=== PATIENT | male | born 1985 | race Caucasian/White ===

== ENCOUNTER 2019-05-20 20:12 | Emergency (ER) | payer OTHER ==
[2019-05-20] MEDS ORDERED: LIDOCAINE 1% INJ 10MG/ML (20 ML MDV) SQ STA (20:36)
[2019-05-20] MEDS ORDERED: CEPHALEXIN 500MG STARTER PACK 4 CAP BTL PO STA (21:28)
[2019-05-20] MEDS ORDERED: SULFAMETH-TMP DS STARTER PACK 2 TAB BTL PO STA (21:28)
--- NOTE | 2019-05-20 21:30 | ED ---
General Adult HPI - General Chief complaint: Skin/Abscess/Foreign Body Stated complaint: Abscess Time Seen by Provider: 05/20/19 20:19 Source: patient, RN notes reviewed, old records reviewed Mode of arrival: ambulatory Limitations: no limitations - History of Present Illness Initial comments: 33-year-old male patient no pertinent past medical history presents to ED for chief complaint of testicular abscess. Patient reports that for 2 days he has had an abscess on the dorsal aspect of his penis. Denies any injections in the area, denies any IV drug use. Patient does report he did attempt an incision and drainage himself in the shower today with a clean knife which he states did not drain any pus. Was seen at urgent care and then sent emergency department. Denies any reason for immunocompromised state. Systemic: Pt denies fatigue, fever/chills, rash. Pt denies weakness, night sweats, weight loss. Neuro: Pt denies headache, visual disturbances, syncope or pre-syncope. HEENT: Pt denies ocular discharge or irritation, otalgia, rhinorrhea, pharyngitis or notable lymphadenopathy. Cardiopulmonary: Pt denies chest pain, SOB, heart palpitations, dyspnea on exertion. Abdominal/GI: Pt denies abdominal pain, n/v/d. : Pt denies dysuria, burning w/ urination, frequency/urgency. Denies new onset urinary or bowel incontinence. MSK: Pt denies myalgia, loss of strength or function in extremities. Neuro: Pt denies new onset weakness, paresthesias. - Related Data Previous Rx's Medication Instructions Recorded Cephalexin [Keflex] 500 mg PO Q6HR 10 Days #40 cap 05/20/19 Sulfamethox-Tmp 800-160Mg [Bactrim 1 tab PO Q12HR #20 tab 05/20/19 DS 800-160 mg] Allergies Allergy/AdvReac Type Severity Reaction Status Date / Time No Known Allergies Allergy Verified 05/20/19 20:15 Review of Systems ROS Statement: Those systems with pertinent positive or pertinent negative responses have been documented in the HPI. ROS Other: All systems not noted in ROS Statement are negative. Past Medical History Past Medical History: No Reported History History of Any Multi-Drug Resistant Organisms: None Reported Past Surgical History: Tonsillectomy Past Psychological History: No Psychological Hx Reported Smoking Status: Smoker, current status unknown Past Alcohol Use History: None Reported Past Drug Use History: None Reported General Exam - General Exam Comments Initial Comments: Constitutional: NAD, AOX3, Pt has pleasant affect. HEENT: NC/AT, trachea midline, neck supple, no lymphadenopathy. Posterior ph arynx non erythematous, without exudates. External ears appear normal, without discharge. Mucous membranes moist. Eyes PERRLA, EOM intact. There is no scleral icterus. No pallor noted. Cardiopulmonary: RRR, no murmurs, rubs or gallops, no JVD noted. Lungs CTAB in anterior and posterior biswas. No peripheral edema. Abdominal exam: Abdomen soft and non-distended. Abdomen non-tender to palpation in all 4 quadrants. Bowel sounds active in LLQ. No hepatosplenomegaly. No ecchymosis Neuro: CN II-XII grossly intact. No nuchal rigidity. No raccon eyes, no abrams sign, no hemotympanum. No cervical spinal tenderness. MSK: No posterior calf tenderness bilaterally, homans sign negative bilaterally. Posterior tibialis and radial pulse +2 bilaterally. Sensation intact in upper and lower extremities. Full active ROM in upper and lower extremities, 5/5 stregnth. : 2 x 1 cm abscess proximal aspect of the dorsum of the penile shaft. Area was cleaned, incision and drainage was performed initially with an 18-gauge needle and then slightly extended with a scalpel. Total incision approximately half centimeter of length. Purulent drainage was obtained. No other areas of infection noted on gentle region, no scrotal tenderness, no erythema. Limitations: no limitations Course Vital Signs 05/20/19 20:15 Temperature 97.8 F Pulse Rate 102 H Respiratory 16 Rate Blood Pressure 153/98 O2 Sat by Pulse 99 Oximetry Medical Decision Making - Medical Decision Making 33-year-old male patient no pertinent past medical history presents to ED for chief complaint of testicular abscess. Patient reports that for 2 days he has had an abscess on the dorsal aspect of his penis. Denies any injections in the area, denies any IV drug use. Patient does report he did attempt an incision and drainage himself in the shower today with a clean knife which he states did not drain any pus. Was seen at urgent care and then sent emergency department. Denies any reason for immunocompromised state. Patient will signs are stable, a febrile. Physical exam displayed: 2 x 1 cm abscess proximal aspect of the dorsum of the penile shaft. Area was cleaned, incision and drainage was performed initially with an 18-gauge needle and then slightly extended with a scalpel. Total incision approximately half centimeter of length. Purulent drainage was obtained. No other areas of infection noted on gentle region, no scrotal tenderness, no erythema. Patient will be discharged with very strict return precautions and urology and primary care follow-up tomorrow. Will be prescribed Bactrim. Will return to ED immediately if condition worsens. Case discussed and pt seen by Dr. Fernandez. Disposition Clinical Impression: Abscess of shaft of penis Disposition: HOME SELF-CARE Condition: Stable Instructions (If sedation given, give patient instructions): Abscess Incision and Drainage (ED) Additional Instructions: Take antibiotics as directed. Keep area loosely covered with gauze. Follow-up with urologist tomorrow. Follow with primary care provider tomorrow. Return immediately to ER if condition worsens in any way whatsoever. Prescriptions: Sulfamethox-Tmp 800-160Mg [Bactrim DS 800-160 mg] 1 tab PO Q12HR #20 tab Cephalexin [Keflex] 500 mg PO Q6HR 10 Days #40 cap Is patient prescribed a controlled substance at d/c from ED?: No Referrals: None,Stated [Primary Care Provider] - 1-2 days Eddie Valdovinos MD [STAFF PHYSICIAN] - 1-2 days [facility] - 1-2 days
[2019-05-20 21:41] VITALS: BP 148/86; PULSE 93; RESP 18; TEMP 98
== END 2019-05-20 21:40 | disposition home or self-care (01) ==
LOC: EC 20:12
DX: N48.21 Abscess of corpus cavernosum and penis (principal); Z87.891 Personal history of nicotine dependence
CPT/HCPCS: 87070; 87205; 99284; 10060; J2001; 87077; 87186

== ENCOUNTER 2020-09-15 14:06 | Emergency (ER) | payer OTHER ==
--- NOTE | 2020-09-15 15:39 | CT ---
EXAMINATION TYPE: CT orbits wo con DATE OF EXAM: 09/15/2020 COMPARISON: None HISTORY: 35-year-old male Right eye pain and redness. TECHNIQUE: Contiguous axial scanning of the orbits without IV contrast. Coronal reconstructions perfo rmed. CT DLP: 294.4 mGycm Automated exposure control for dose reduction was used. FINDINGS: The globes appear symmetric. No intraorbital retrobulbar are abnormality. The extraocular muscles perlita ear normal. Optic nerve sheath complexes appear symmetric. No significant asymmetric preseptal abnorm ality is identified by CT. Moderate mucosal thickening posterior right ethmoid air cells. Remainder of the paranasal sinuses perlita ear clear. Slight rightward nasal septal deviation. Visualized mastoid air cells and middle ear cavities are clear. Cerumen within the left external jeannette tory canal. Visualized intracranial structures show no gross abnormality. IMPRESSION: MODERATE MUCOSAL THICKENING POSTERIOR RIGHT ETHMOID AIR CELLS. NO SIGNIFICANT PRESEPTAL OR POSTSEPTAL ABNORMALITY IDENTIFIED BY CT. THE GLOBES APPEAR SYMMETRICAL ON THIS NONCONTRAST CT.
--- NOTE | 2020-09-15 15:41 | ED ---
Eye Problem HPI - General Chief complaint: Eye Problems Stated complaint: sent from dr layne quintana Time Seen by Provider: 09/15/20 15:04 Source: patient Mode of arrival: ambulatory Limitations: no limitations - History of Present Illness Initial comments: Alexis is a 35-year-old male who presents to the ER today from ophthalmology office for evaluation of possible intraocular foreign body. Patient reports that 5 days ago he was working the gradual in nail bounced off something and struck him in the eye. He had pain at that time. Had intermittent pain since that time. He followed with ophthalmology today who noted that he had corneal laceration with concern for foreign body and recommended a computed tomography scan. - Related Data Previous Rx's Medication Instructions Recorded Cephalexin [Keflex] 500 mg PO Q6HR 10 Days #40 cap 05/20/19 Sulfamethox-Tmp 800-160Mg [Bactrim 1 tab PO Q12HR #20 tab 05/20/19 DS 800-160 mg] Allergies Allergy/AdvReac Type Severity Reaction Status Date / Time No Known Allergies Allergy Verified 05/20/19 20:15 Review of Systems ROS Statement: Those systems with pertinent positive or pertinent negative responses have been documented in the HPI. ROS Other: All systems not noted in ROS Statement are negative. Past Medical History Past Medical History: No Reported History History of Any Multi-Drug Resistant Organisms: None Reported Past Surgical History: Tonsillectomy Past Psychological History: No Psychological Hx Reported Smoking Status: Current every day smoker Past Alcohol Use History: Occasional Past Drug Use History: None Reported General Exam - General Exam Comments Initial Comments: Physical Exam GENERAL: Patient is well-developed and well-nourished. Patient is nontoxic and well-hydrated and is in no distress. HENT: Normocephalic, Atraumatic. EYES: Right eye dilated, unreactive Left eye 3mm reactive PULMONARY: Unlabored respirations. CARDIOVASCULAR: RRR Warm and well perfused extremities ABDOMEN: Non-distended SKIN: No rashes or bruising : Deferred NEUROLOGIC: Alert and oriented Normal speech Normal gait MUSCULOSKELETAL: Moving all extremities with no apparent injury PSYCHIATRIC: No SI/HI Limitations: no limitations Course Vital Signs 09/15/20 14:10 Temperature 97.7 F Pulse Rate 95 Respiratory 18 Rate Blood Pressure 159/110 O2 Sat by Pulse 98 Oximetry Medical Decision Making - Medical Decision Making Patient care was discussed with ophthalmology prior to patient's arrival, customer service clerk concern for ocular foreign body requesting computed tomography scan be performed Computed tomography scan was performed, I reviewed the CT I see no active foreign body, radiology reviewed CT they seen ocular foreign body These results were discussed with customer service clerk Dr. Gates who is comfortable with plan for patient to be discharged home, he has prescribed antibiotics for the patient. He will see the patient in office on Tuesday. Patient is agreeable to this plan. Patient did have his tetanus vaccine updated while in the emergency department. Disposition Clinical Impression: Corneal laceration of right eye Disposition: HOME SELF-CARE Condition: Stable Additional Instructions: Follow up with Dr Gates as needed Is patient prescribed a controlled substance at d/c from ED?: No Referrals: None,Stated [Primary Care Provider] - 1-2 days
[2020-09-15] MEDS ORDERED: DIPH,PERTUS(ACELL)TETVAC-LF 0.5 ML VIAL IM ONE (15:43)
[2020-09-15 16:33] VITALS: BP 168/90; PULSE 92; RESP 16; TEMP 98.7
== END 2020-09-15 16:31 | disposition home or self-care (01) ==
LOC: EC 14:06
DX: S05.31XA Ocular laceration without prolapse or loss of intraocular tissue, right eye, initial encounter (principal); Z23 Encounter for immunization; F17.200 Nicotine dependence, unspecified, uncomplicated; W22.8XXA Striking against or struck by other objects, initial encounter; Y99.0 Civilian activity done for income or pay
CPT/HCPCS: 70480; 90471; 90715; 99283